=== PATIENT | male | born 1990 | race Asian ===

== ENCOUNTER 2020-02-14 21:57 | Emergency (ER) | payer OTHER, SELFPAY ==
[~2020-02-14] VITALS: Ht 185.4 cm; Wt 93.0 kg
[2020-02-14 22:05] VITALS: Ht 185.4 cm; Wt 93.0 kg
[2020-02-14 23:37] VITALS: BP 115/76
[2020-02-15] MEDS ORDERED: TESSALON PERLE100 MG PO (23:58)
[2020-02-17] MEDS ORDERED: LEVAQUIN750 MG PO (12:22)
[2020-02-17] MEDS ORDERED: VENTOLIN H0.09 MG/A1 INH (12:25)
[2020-02-17] MEDS ORDERED: MEDROL DOSEPAK4 MG PO (12:26)
== END 2020-02-14 23:34 | disposition home or self-care (01) ==
LOC: ED 21:57
DX: R05 Cough (principal); R50.9 Fever, unspecified; Z20.828 Contact with and (suspected) exposure to other viral communicable diseases
CPT/HCPCS: U0003-CS